=== PATIENT | male | born 1995 | race Caucasian/White ===

== ENCOUNTER 2018-12-03 16:08 | Emergency (ER) | payer OTHER | END 2018-12-03 19:03 | disposition home or self-care (01) | LOC: FTE 16:08 | DX: S06.0X0A Concussion without loss of consciousness, initial encounter (principal); F17.210 Nicotine dependence, cigarettes, uncomplicated; Y08.89XA Assault by other specified means, initial encounter | CPT/HCPCS: 70450; 99284 ==